=== PATIENT | female | born 1970 | race Two or more races ===

== ENCOUNTER 2025-02-01 18:30 | Emergency (ER) | payer MEDICAID, SELFPAY ==
[2025-02-01 18:31] VITALS: BMI 37.2
[2025-02-01 19:47] VITALS: BP 155/93; PULSE 95; RESP 18; TEMP 36.6; O2SAT 96
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
[2025-02-01] MEDS: HYDROcodone/APAP 5/325 TABLET 1 TAB PO (21:40)
[2025-02-01 22:04] VITALS: RESP 18
== END 2025-02-01 22:05 | disposition home or self-care (01) ==
PROVIDERS: Emergency Provider Emergency Medicine
DX: S13.4XXA Sprain of ligaments of cervical spine, initial encounter (principal); S23.3XXA Sprain of ligaments of thoracic spine, initial encounter; S33.5XXA Sprain of ligaments of lumbar spine, initial encounter; M50.322 Other cervical disc degeneration at C5-C6 level; V49.40XA Driver injured in collision with unspecified motor vehicles in traffic accident, initial encounter
CPT/HCPCS: 72040; 72072; 72100; 99282; A9270